=== PATIENT | female | born 1980 | race Caucasian/White ===

== ENCOUNTER 2018-03-24 13:09 | Emergency (ER) | payer SELFPAY | END 2018-03-24 15:00 | disposition home or self-care (01) | LOC: M ED 13:09 | DX: S50.02XA Contusion of left elbow, initial encounter (principal); Y04.8XXA Assault by other bodily force, initial encounter; Y07.03 Male partner, perpetrator of maltreatment and neglect; Y92.009 Unspecified place in unspecified non-institutional (private) residence as the place of occurrence of the external cause; Z87.891 Personal history of nicotine dependence | CPT/HCPCS: 73080 ==